=== PATIENT | female | born 1985 | race Caucasian/White ===

== ENCOUNTER 2017-01-13 11:34 | Observation (INO) ==
[2017-01-13 11:40] VITALS: BP 106/71
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
[2017-01-13] MEDS ORDERED: Ringers Solution, Lactated 250 ML IVC PRN (13:20)
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
[2017-01-13 14:41] LABS: Basophils % 0.2 %; Eosinophils % 0.3 %; Hemoglobin 11.9 g/dL (11.5-15.4); Immature Granulocytes % 0.4 % (0-4); Lymphocytes # 1.8 K/mcL (0.6-4.6); Lymphocytes % 13.4 %; Mean Corpuscular HGB Conc 33.1 g/dL (31.6-35.5); Mean Corpuscular Hemoglobin 30.4 pg (28.0-33.3); Mean Corpuscular Volume 91.8 fL (83.0-100.0); Mean Platelet Volume 11.6 fL (9.4-12.4); Monocytes # 0.7 K/mcL (0.0-1.3); Monocytes % 5.2 %; Neutrophils # 10.8 K/mcL (1.6-8.9); Platelet Count 165 K/mcL (140-400); Red Blood Count 3.92 M/mcL (3.82-4.97); Red Cell Distribution Width 12.9 % (11.5-14.5); Segmented Neutrophils % 80.5 %
[2017-01-13 15:50] LABS: Prothrombin Time 10.7 Seconds (9.4-12.1)
[2017-01-13 16:06] LABS: Kleihauer-Betke-Fet Hgb Qnt 0 mL FMH (0-0)
[2017-01-13 16:52] LABS: Bilirubin,Urine Negative (Negative); Blood,Urine Negative (Negative); Clarity,Urine Cloudy (Clear); Color,Urine Yellow (Yellow); Glucose,Urine (UA) Normal (Normal); Ketones,Urine 15 mg/dL (Negative); Leukocyte Esterase,Urine Negative (Negative); Nitrite,Urine Negative (Negative); PH,Urine 6.5 pH Units (5.0-8.0); Protein,Urine Negative (Neg-Trace); Specific Gravity,Urine 1.017 (1.010-1.025); Urobilinogen,Urine Normal (Normal)
[2017-01-13 16:53] LABS: Hyaline Casts,Urine None Seen per lpf (None-Few); RBC,Urine 0-3 per hpf (0-3); Squamous Epithelial Cell,Urine Many per lpf (None-Few); WBC,Urine 0-3 per hpf (0-3)
[2017-01-13 17:05] LABS: Bacteria,Urine Few per hpf (None-Few); Mucus,Urine Few (Few)
[2017-01-14] MEDS ORDERED: Prenatal Vit/FA 1 EACH TABLET PO SCH (09:00)
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
== END 2017-01-14 11:25 | disposition home or self-care (01) ==
LOC: EMEROO 11:34 → 1NENULAB 11:34
PROVIDERS: ADMIT Obstetrics & Gynecology; ATTEND Obstetrics & Gynecology

== ENCOUNTER → 2017-02-03 19:30 | Observation (INO) ==
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
[2017-02-03 18:33] LABS: Bilirubin,Urine Negative (Negative); Blood,Urine Negative (Negative); Clarity,Urine Cloudy (Clear); Color,Urine Yellow (Yellow); Glucose,Urine (UA) Normal (Normal); Ketones,Urine Negative (Negative); Leukocyte Esterase,Urine Negative (Negative); Nitrite,Urine Negative (Negative); Protein,Urine Negative (Neg-Trace); Specific Gravity,Urine 1.014 (1.010-1.025); Urobilinogen,Urine Normal (Normal)
[2017-02-03 18:37] LABS: Bacteria,Urine Moderate per hpf (None-Few); Hyaline Casts,Urine None Seen per lpf (None-Few); RBC,Urine 0-3 per hpf (0-3); Squamous Epithelial Cell,Urine Many per lpf (None-Few); WBC,Urine 30-50 per hpf (0-3)
== END | disposition home or self-care (01) ==
LOC: 1NENULAB

== ENCOUNTER 2017-02-23 07:33 | Inpatient (IN) ==
[2017-02-23] MEDS ORDERED: Metoclopramide 10 MG/2 ML VIAL IVP ONE (07:45)
[2017-02-23] MEDS ORDERED: Famotidine 20 MG/2 ML VIAL IVP ONE (07:45)
[2017-02-23] MEDS ORDERED: Ringers Solution, Lactated 1,000 ML IVC ONE (07:45)
[2017-02-23] MEDS ORDERED: Oxytocin 20 units/ LR 1000 mL 20 UNIT/1,000 ML BAG IVC ONE (07:45)
[2017-02-23] MEDS ORDERED: CeFAZolin Pre 2,000 MG/100 ML 2,000 MG/100 ML BAG IVPB ONE (07:45)
[2017-02-23] MEDS ORDERED: Ringers Solution, Lactated 1,000 ML IVC SCH ×2 (07:45→14:49)
[2017-02-23 08:06] LABS: Basophils % 0.3 %; Eosinophils # 0.2 K/mcL (0.0-0.6); Eosinophils % 1.1 %; Hematocrit 36.7 % (35.3-44.9); Hemoglobin 12.4 g/dL (11.5-15.4); Immature Granulocytes % 0.5 % (0-4); Immature Platelets 11.6 % (1.1-6.1); Lymphocytes # 2.2 K/mcL (0.6-4.6); Lymphocytes % 16.9 %; Mean Corpuscular HGB Conc 33.8 g/dL (31.6-35.5); Mean Corpuscular Hemoglobin 30.3 pg (28.0-33.3); Mean Corpuscular Volume 89.7 fL (83.0-100.0); Mean Platelet Volume 12.1 fL (9.4-12.4); Monocytes # 0.8 K/mcL (0.0-1.3); Neutrophils # 9.8 K/mcL (1.6-8.9); Platelet Count 201 K/mcL (140-400); Red Blood Count 4.09 M/mcL (3.82-4.97); Red Cell Distribution Width 13.4 % (11.5-14.5); Segmented Neutrophils % 75.2 %
--- NOTE | 2017-02-23 08:26 | Anesthesia Evaluation PreOp ---
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: Denies Any Significant HX Other Medical History: Denies Any Significant HX, Other () Anesthesia History: No Prior Anesthetic Complications, Past Anesthesia (C section) : Yes Alcohol Use: none Drug use: none Medications and Allergies Tablet 1 tab PO DAILY 01/13/17 [History] Loratadine [Claritin] 10 mg PO DAILY 02/23/17 [History] Allergies No Known Allergies Allergy (Verified 07/05/16 14:26) - Meds/Allergy Pre-op Review Medications Reviewed: Yes Allergies Reviewed: Yes Beta Blockers on Current Med List: No Anesthesia Results - Labs 02/23/17 07:50 Anesthesia Exam O2 Sat Height 1.6 m Weight 81.1 kg NPO (# of Hours): >8 Pain Scale: 0 Pain Scale Used: Numeric (1 - 10) - HEENT Pupil (Motor): Pupils equal, EOMI Mallampati: II Teeth: Normal Oral Opening: Greater than 3 - MACHINIST WOOD LOC: Oriented MACHINIST WOOD Motor: Normal RUE, Normal LUE, Normal RLE, Normal LLE, Normal Face MACHINIST WOOD Sensory: Normal: RUE, LUE, RLE, LLE, Face - Cardiac Rhythm: Regular - Pulmonary Breath Sounds: bilateral Clear Respiratory Effort: Symmetrical Anesthesia Assess/Plan ASA Score: 2 Modified [place] Scale for Level of Consciousness: Cooperative, oriented, and tranquil Anesthetic Plan: Regional (spinal, r/b/a discussed, questions answered, consent obtained, plan b GA) Monitoring Plan: Standard Monitors Recovery Plan: PACU
[2017-02-23] MEDS ORDERED: *HR* FentaNYL (PF) 100 MCG/2 ML VIAL ONE (09:30)
[2017-02-23] MEDS ORDERED: *HR* Morphine Sulfate/PF 5 MG/10 ML AMPUL ONE (09:30)
--- NOTE | 2017-02-23 09:32 | OB/GYN History & Physical ---
Date of Encounter: 02/23/17 Time of Encounter: 09:30 Assessment and Plan (1) and not yet delivered in third trimester Current visit: Yes Status: Acute (2) 39 weeks gestation of Current visit: Yes Status: Acute (3) Previous delivery affecting Current visit: No Status: Acute Patient will be scheduled for repeat low transverse section with bilateral partial salpingectomy (4) Family planning advice Current visit: Yes Status: Acute History of Present Illness HPI: Ms. Cortes is a 31 year old female 3 para 0011 at 39-2/7 weeks who presented for repeat section. Patient has a history of a previous section and she was advised to need a repeat. Patient also wanted a tubal ligation the risks and benefit of a tubal ligation were expensive patient with a failure rate of 5-8 per thousand with increased risk of an ectopic if was to occur. Patient's course has been unremarkable last ultrasound done a month ago placed the baby at 2657 g CODY was 17 cm. Patient is Rh+, rubella positive, GBS negative. Past Med Surg Social Fam HX - Past Medical History Source: patient, old records reviewed Medical history: no medical history Psychiatric history: no psych history - Past Surgical History Surgical History: (Times one) - Social History Smoking Status: Never smoker Smokeless Tobacco Status: No Alcohol use: none Drug use: none Occupational status: employed Current living situation: Home - Independent Activity Level: Independent ambulation Recent Out of Country Travel Within the Last 8 Weeks: No Exposure or Possible Exposure to Illness During Travel: No - Family History Mother Living Status: Still Living Hx Family Cardiac Disorders: No Hx Family Respiratory Disorders: No Hx Family Cancer: No Hx Family GI Disorders: No Hx Family Genitourinary Disorders: No Hx Family Endocrine Disorder: No Hx Family Musculoskeletal Disorders: No Hx Family Neuromuscular Disorders: No Hx Family Neurologic Disorders: No Hx Family HEENT Disorders: No Hx Family Autoimmune Disorders: No Hx Family Reproductive Disorders: No Hx Family Psychosocial Disorders: No Hx Family Medical Disorders: No - Additional Family History Additional family history: Family history noncontributory at this time Obstetrical History - Pregnancies : 3 Para: 1 Term: 1 : 0 Ab's: 1 Livin Medications and Allergies Tablet 1 tab PO DAILY 01/13/17 [History] Loratadine [Claritin] 10 mg PO DAILY 02/23/17 [History] Allergies No Known Allergies Allergy (Verified 07/05/16 14:26) Review of System OB All systems PM: reviewed and no additional remarkable complaints except as stated Exam - Constitutional Constitutional: well developed, well nourished, no acute distress, average body habitus - HEENT HEENT: EOMI, PERRL - Neck Neck exam: full ROM - Lungs Respiratory exam: CTAB - Cardiovascular Cardiovascular exam: RRR - Abdomen Abdomen: Present: bowel sounds normal, gravid - Cervix Dilation: 0 Effacement: 80 Station: -3 Results Result Diagrams: 02/23/17 07:50 Abnormal lab results WBC 13.1 K/mcL (4.3-11.1) H 02/23/17 07:50 Neutrophils # 9.8 K/mcL (1.6-8.9) H 02/23/17 07:50 Immature Plt Fraction 11.6 % (1.1-6.1) H 02/23/17 07:50 All other labs normal.
--- NOTE | 2017-02-23 10:43 | OB/GYN Procedure Note ---
Section - Date of procedure: 02/23/17 Preop diagnosis: other (Intrauterine at 39-3/7 weeks, previous section 1, desires sterilization) Post-op diagnosis: same Procedure: repeat low transverse, bilateral tubal ligation Surgeon: Edwin Odom Anesthesiologist: Tamiko Reeder Hogshead Stripper: Kem Campbell Anesthesia Type: Spinal section complications: none Disposition: L&D Recovery Room Specimens: Right tube segment, Left tube segment - Infant (s) A Delivery Date: 02/23/17 Infant Delivery Time: 11:27 Presentation: vertex Position: unknown Route of delivery: other ( section) Gender: Male Viability: Viable Pounds: 7 Ounces: 13 Gram Weight: 3.55 kg at 1 minute: 8 at 5 minutes: 9 Shoulder Dystocia: not encountered Placenta: spontaneous Cord: 3 umbilical vessels - Narrative Narrative: Patient is a 31-year-old 3 para 0011 at 39-3/7 weeks who presented for repeat low transverse section. Patient had a previous section and we did not offer VBACs, patient is also wanting a tubal ligation the risks and benefit of a tubal were explained to the patient with failure rate of 5-8000 with increased risk of ectopic if was to occur. Procedure: Patient was taken to the operating room where spinal anesthesia was found be adequate. She was noted dorsal supine position with leftward tilt and prepped and draped in usual fashion. Timeout was obtained. A Pfannenstiel incision was made with a scalpel and carried down to the underlying tissue to fascia was identified. The fascia was nicked in the midline extended laterally with the Martinez scissors. The superior and inferior edges of the fascia grasped tented up and dissected off the rectus muscles. The rectus muscles were in the midline and the parietal peritoneum was identified tented up and entered sharply. This was extended superiorly and inferiorly with Metzenbaum scissors. The bladder blade is inserted the vesicouterine peritoneum was identified tented up and entered sharply. This was extended laterally the bladder flap was created digitally. The lower uterine segment was incised with a scalpel extended laterally with digital manipulation. Membranes are ruptured and clear fluid identified. 's head was delivered cord was clamped and cut and was handed off to waiting pediatric team. Placenta was then spontaneously delivered 3 vessel cord. The uterus was exteriorized and cleaned of all clots and debris. The lower uterine segment was then closed using an 0 Vicryl in a running locking stitch by a 2 layer closure. Good hemostasis was noted the uterus was returned to the abdomen the gutters were cleaned of all clots and debris and copiously irrigated. No active bleeding was noted. The fascia was closed using a #1 stratafix in a running stitch and the skin was closed using a 4-0 Vicryl in subcuticular manner. All needles lap and sponge counts were correct 3 she did receive preoperative antibiotics. She will be observed 2 hours before being taken to the floor.
--- NOTE | 2017-02-23 11:27 | Anesthesia Procedures ---
Date of Encounter: 02/23/17 Time of Encounter: 11:02 Procedures: Anesthesia - Epidural/Spinal Patient ID/Chart reviewed: Yes Patient examined: Yes OB Eval: : 3 OB Eval: Hx Para: 1 OB Eval: Contractions: Non-stressed pattern Consent Obtained: Yes Supplemental Oxygen: None/Room Air Site Prep: Aseptic Technique, Sterile prep and drape, Povidone-Iodine 1% Patient position: upright Local Anesthetic: Lidocaine 1% Amount of Local Anesthetic used: 3 Blood: No CSF: Yes Paresthesia: No Spinal Needle Gauge: 25 Spinal Dose: see anesthesia record Procedure: see anesthesia record
[2017-02-23] MEDS ORDERED: Ondansetron 4 MG/2 ML VIAL IVP PRN ×2 (11:38→14:49)
[2017-02-23] MEDS ORDERED: Naloxone 0.4 MG/ML INJ IVP PRN ×2 (11:38→14:49)
[2017-02-23] MEDS ORDERED: *HR* HYDROmorphone (PF) 1 MG/ML SYRINGE IVP PRN (11:38)
[2017-02-23] MEDS ORDERED: *HR* Oxytocin 10 UNIT/ML VIAL IM ONE ×2 (11:39→12:04)
[2017-02-23] MEDS ORDERED: *HR* Phenylephrine 10 MG/ML VIAL ONE (11:39)
[2017-02-23] MEDS ORDERED: Ringers Solution, Lactated 1,000 ML ONE (12:04)
--- NOTE | 2017-02-23 12:19 | Anesthesia Evaluation Post Op ---
Date of Encounter: 02/23/17 Time of Encounter: 12:18 - Vital Signs Vital Signs: 100/79, HR 104, SpO2 98%, T97.4F, RR16 - Lungs Lungs: Clear Ascult./Percussion - Airway Airway: Non-obstructed - Cardiovascular Regular Rate - Mental Status Mental Status: Alert & Oriented, Answers Appropriately - Pain Pain Scale: 0 Pain Scale used: Numeric (1 - 10) - Nausea Vomiting Nausea Vomiting: Not Present - Hydration Hydration: NPO, Bishop catheter - Discharge PostOp Status: Transfer Patient to floor
[2017-02-23] MEDS ORDERED: Simethicone 80 MG TAB.CHEW PO PRN (14:49)
[2017-02-23] MEDS ORDERED: *HR* OxyCODONE/APAP 10/325 TABLET PO PRN (14:49)
[2017-02-23] MEDS ORDERED: Sennosides 8.6 MG TABLET PO PRN (14:49)
[2017-02-23] MEDS ORDERED: Oxytocin 20 units/ LR 1000 mL 20 UNIT/1,000 ML BAG IVC SCH ×2 (14:49)
[2017-02-23] MEDS ORDERED: *HR* Morphine 2 MG/ML SYRINGE IVP PRN (14:49)
[2017-02-23] MEDS ORDERED: Metoclopramide 10 MG/2 ML VIAL IVP PRN (14:49)
[2017-02-23] MEDS ORDERED: Ketorolac 15 MG/ML VIAL IVP PRN (15:43)
[2017-02-24 03:48] LABS: Basophils % 0.2 %; Eosinophils # 0.1 K/mcL (0.0-0.6); Eosinophils % 1.1 %; Hematocrit 34.5 % (35.3-44.9); Hemoglobin 11.3 g/dL (11.5-15.4); Immature Granulocytes % 0.4 % (0-4); Lymphocytes # 1.6 K/mcL (0.6-4.6); Lymphocytes % 12.9 %; Mean Corpuscular HGB Conc 32.8 g/dL (31.6-35.5); Mean Corpuscular Hemoglobin 29.5 pg (28.0-33.3); Mean Corpuscular Volume 90.1 fL (83.0-100.0); Mean Platelet Volume 12.1 fL (9.4-12.4); Monocytes # 0.7 K/mcL (0.0-1.3); Monocytes % 5.8 %; Neutrophils # 10.1 K/mcL (1.6-8.9); Platelet Count 176 K/mcL (140-400); Red Blood Count 3.83 M/mcL (3.82-4.97); Red Cell Distribution Width 13.5 % (11.5-14.5); Segmented Neutrophils % 79.6 %
[2017-02-24] MEDS: Loratadine 10 MG TABLET PO SCH (08:24)
[2017-02-24] MEDS: *HR* OxyCODONE/APAP 5/325 TABLET PO PRN ×2 (08:24→19:51)
[2017-02-24] MEDS: Prenatal Vit/FA 1 EACH TABLET PO SCH (08:24)
--- NOTE | 2017-02-24 08:57 | OB/GYN Progress Note ---
Date of Encounter: 02/24/17 Time of Encounter: 08:55 - Assessment and Plan (1) Status post delivery Current Visit: Yes Status: Acute Continue routine care Possible discharge home tomorrow Subjective - Subjective Principal diagnosis: Postop/ day 1 repeat c/s with BPS Interval history: Patient doing well. Denies any current pain. Ambulating without assistance. Voiding without difficulty. Patient reports: appetite normal, voiding normally, pain well controlled, ambulating normally [place]: doing well, bottle feeding Objective - Vital Signs Latest vital signs: Vital Signs Temp Pulse Pulse Resp BP Pulse Ox 02/24/17 04:00 98.2 F 77 16 105/66 94 02/24/17 01:15 84 02/23/17 19:45 80 16 02/23/17 19:42 98.1 F 81 16 104/68 97 02/23/17 17:40 97.5 F L 80 16 109/68 96 02/23/17 16:45 97.8 F 85 16 103/67 96 02/23/17 15:30 97.3 F L 76 16 107/71 97 02/23/17 15:00 97.7 F 70 18 94/63 97 02/23/17 14:52 18 02/23/17 14:30 97.6 F 72 16 104/70 97 Intake and Output 02/23/17 02/24/17 02/24/17 23:59 07:59 15:59 Intake Total 325 / 325 Output Total 100 / 100 1375 / 1375 Balance -100 / -100 -1050 / -1050 Intake: Oral 325 / 325 Output: Emesis 100 / 100 Catheter 1375 / 1375 Other: Stool Characteristics Normal for Patient Weight 77.5 kg Patient Weight 02/24/17 23:59 Weight 77.5 kg - Exam Lungs: bilateral: normal Chest: Normal S1, Normal S2 Extremities: Present: normal Abdomen: Present: normal appearance, soft Incision: Present: normal, dry, intact, dressed Uterus: Present: normal, firm Fundal Height: 2 (U/2) - Labs Labs: Laboratory Results - last 24 hr 02/24/17 03:13 WBC 12.7 H RBC 3.83 Hgb 11.3 L Hct 34.5 L MCV 90.1 MCH 29.5 MCHC 32.8 RDW 13.5 Plt Count 176 MPV 12.1 Immature Gran % 0.4 Seg Neutrophils % 79.6 Lymphocytes % 12.9 Monocytes % 5.8 Eosinophils % 1.1 Basophils % 0.2 Neutrophils # 10.1 H Lymphocytes # 1.6 Monocytes # 0.7 Eosinophils # 0.1 Basophils # 0.0
[2017-02-24] MEDS ORDERED: NON-FORMULARY MEDICATION 1 EACH EACH (Prenatal Tablet 1 TAB) PO SCH (09:00)
[2017-02-24] MEDS: Ibuprofen 600 MG TABLET PO PRN ×2 (10:22→22:56)
[2017-02-25] MEDS: *HR* OxyCODONE/APAP 5/325 TABLET PO PRN ×2 (01:28→05:47)
[2017-02-25 07:58] VITALS: BP 109/73
--- NOTE | 2017-02-25 10:01 | Discharge Summary ---
Date of Encounter: 02/25/17 Time of Encounter: 09:58 - Discharge Diagnosis (1) Status post delivery Priority: Primary Status: Acute Comments: Patient doing well postop day 2. Pain is well controlled Denies difficulty urinating and is passing flatus Lochia is light without clots Patient is bottle feeding Discharge home today - Discharge Medications Prescriptions: OxyCODONE/APAP 5/325 [Percocet 5/325 MG] 1 each PO Q4HR PRN #30 tablet PRN Reason: Moderate pain 4-6 Ibuprofen [Motrin] 600 mg PO Q6HR PRN #60 tablet PRN Reason: Cramping Docusate [Colace] 100 mg PO BID #30 capsule Ferrous Sulfate 325 mg PO DAILY #30 tablet Home Medications: Tablet 1 tab PO DAILY 01/13/17 [History] Loratadine [Claritin] 10 mg PO DAILY 02/23/17 [History] Docusate [Colace] 100 mg PO BID #30 capsule 02/25/17 [Rx] Ferrous Sulfate 325 mg PO DAILY #30 tablet 02/25/17 [Rx] Ibuprofen [Motrin] 600 mg PO Q6HR PRN #60 tablet 02/25/17 [Rx] OxyCODONE/APAP 5/325 [Percocet 5/325 MG] 1 each PO Q4HR PRN #30 tablet 02/25/17 [Rx] Simethicone [Gas-X] 80 mg PO TID PRN #0 tab.chew 02/25/17 [Rx] Allergies/Adverse Reactions: Allergies No Known Allergies Allergy (Verified 07/05/16 14:26) Data Procedures and tests throughout hospitalization: Laboratory Tests 02/23/17 02/24/17 07:50 03:13 WBC 13.1 H 12.7 H RBC 4.09 3.83 Hgb 12.4 11.3 L Hct 36.7 34.5 L MCV 89.7 90.1 MCH 30.3 29.5 MCHC 33.8 32.8 RDW 13.4 13.5 Plt Count 201 176 MPV 12.1 12.1 Immature Gran % 0.5 0.4 Seg Neutrophils % 75.2 79.6 Lymphocytes % 16.9 12.9 Monocytes % 6.0 5.8 Eosinophils % 1.1 1.1 Basophils % 0.3 0.2 Neutrophils # 9.8 H 10.1 H Lymphocytes # 2.2 1.6 Monocytes # 0.8 0.7 Eosinophils # 0.2 0.1 Basophils # 0.0 0.0 Immature Plt Fraction 11.6 H Date of admission: 02/23/17 07:33 Primary care physician: PCP ESTUARDO Discharging clinician: Emelia Montanez Anticipated date of discharge: 02/25/17 - Patient Status Disposition: Home, Self-Care Condition: Good Overall status at discharge: patient is progressing back to baseline - Discharge Instructions Follow Up With: ESTUARDO,PCP [Primary Care Provider] - Edwin Odom DO [Partnered Physician] - - Diet and Activity Activity: increase activity as tolerated Diet: regular diet Hospital Course Reason for admission: section, IUP at term Delivery: section Episiotomy: none Laceration: none Other procedures: tubal ligation complications: none Discharge diagnosis: IUP at term delivered [place] baby: male Time Attestation: Total time spent providing and/or coordinating discharge services: Time Spent: Less than 30 minutes - VTE Documentation of Mechanical Device: Intermittent pneumatic compression device Exam - Constitutional Vitals: Temp Pulse Resp BP Pulse Ox 97.6 F 75 16 109/73 96 02/25/17 07:57 02/25/17 07:57 02/25/17 07:57 02/25/17 07:57 02/24/17 21:10 General appearance IM: cooperative, A&O X 3, pleasant - Respiratory Respiratory exam: Present: CTAB - Cardiovascular Cardiovascular exam IM: Present: RRR, +S1, +S2 - GI/Abdominal GI/Abdominal exam IM: normal bowel sounds, soft Incision: normal, dry, intact - Rectal Rectal exam: deferred - Uterine Tone: Firm Uterus Position: At Umbilicus, Midline - Extremities Exam Extremities exam IM: Present: normal capillary refill, normal inspection, radial pulses palpable and symetrical - Neurological Exam Neurological exam: alert, oriented X3
[2017-02-25] MEDS: Ibuprofen 600 MG TABLET PO PRN (10:11)
[2017-02-25] MEDS: Prenatal Vit/FA 1 EACH TABLET PO SCH (10:11)
[2017-02-25] MEDS: Loratadine 10 MG TABLET PO SCH (10:12)
== END 2017-02-25 12:20 | disposition home or self-care (01) | DRG 540 ==
LOC: 1NENULAB 07:33 → 1NENUOBS 14:38
PROVIDERS: ADMIT Obstetrics & Gynecology; ATTEND Obstetrics & Gynecology